=== PATIENT | male | born 1990 | race Hispanic/Latino ===

== ENCOUNTER 2017-06-06 15:05 | Emergency (ER) | payer OTHER ==
[2017-06-06 15:28] VITALS: O2SAT 98
[2017-06-06] MEDS ORDERED: Sodium Chloride 0.9% 1,000 ML IV STA (15:44)
[2017-06-06] MEDS ORDERED: Morphine 4 mg/ml ISec IVP STA ×2 (15:44→18:20)
--- NOTE | 2017-06-06 15:57 | ED PDOC ---
Arrival/HPI - General Chief Complaint: Abdominal Pain Time Seen by Provider: 06/06/17 15:43 Historian: Patient - History of Present Illness Narrative History of Present Illness (Text): 06/06/17 15:53 Carter Miguel is a 26 year old male, whose past medical history includes Small Bowel Obstruction, who presents to the emergency department complaining of abdominal cramping and constipation for 5 days. Patient was sent by Dr. howe for CAT scan. Patient notes when he stretches his sides seize up and he can't move. Patient also notes associated vomiting. Patient denies any fever , chills, chest pain, shortness of breath, nausea, diarrhea, urinary symptoms, back pain, neck pain, headache, dizziness, or any other complaints. Time/Duration: < week (5 days) Symptom Onset: Gradual Symptom Course: Unchanged Activities at Onset: Light Context: Home Past Medical History - Provider Review Nursing Documentation Reviewed: Yes - Travel History If Yes, travel location?: [facility] - Psychiatric Hx Psychophysiologic Disorder: No Hx Substance Use: No Family/Social History - Physician Review Nursing Documentation Reviewed: Yes Family/Social History: Unknown Family HX Smoking Status: Never Smoked Hx Alcohol Use: No Hx Substance Use: No Allergies/Home Meds Allergies/Adverse Reactions: Allergies No Known Allergies Allergy (Verified 06/06/17 15:23) Home Medications: Home Meds Medication Instructions Recorded Confirmed No Known Home Med 06/06/17 06/06/17 Review of Systems - Physician Review All systems were reviewed & negative as marked: Yes - Review of Systems Constitutional: Normal Eyes: Normal ENT: Normal Respiratory: Normal. absent: SOB, Cough Cardiovascular: Normal. absent: Chest Pain Gastrointestinal: Abdominal Pain, Constipation. absent: Diarrhea, Nausea, Vomiting Genitourinary Male: Normal. absent: Dysuria, Frequency, Hematuria, Urinary Output Changes Musculoskeletal: Normal. absent: Back Pain, Neck Pain Skin: Normal. absent: Rash Neurological: Normal. absent: Headache, Dizziness Endocrine: Normal Hemo/Lymphatic: Normal Psychiatric: Normal Physical Exam - Physical Exam Narrative Physical Exam (Text): 06/06/17 15:58 Constitutional: No acute distress. Head: Normocephalic. Atraumatic. Eyes: PERRL. ENT: Moist mucous membranes. Neck: Supple. Cardiovascular: Regular rate. Chest: No tenderness. Respiratory: Clear to auscultation bilaterally. GI: Periumbilical tenderness. Nondistended. Back: No CVA tenderness. Musculoskeletal: No tenderness or swelling of extremities. Skin: No rash. Neurologic: Alert, no focal deficit. Vital Signs Reviewed: Yes Vital Signs Temp Pulse Resp BP Pulse Ox 06/06/17 19:00 88 18 127/79 98 06/06/17 17:05 97 F L 93 H 18 120/75 98 06/06/17 15:27 98.3 F 63 16 127/85 98 Temperature: Afebrile Blood Pressure: Normal Pulse: Regular Respiratory Rate: Normal Appearance: Positive for: Well-Appearing, Non-Toxic, Comfortable Pain Distress: None Mental Status: Positive for: Alert and Oriented X 3 Medical Decision Making ED Course and Treatment: 06/06/17 15:58 Impression: 26 year old male presents to the emergency department complaining of abdominal cramping and constipation. Plan: -- CT Abdomen/Pelvis -- Urinalysis -- Labs -- Lipase -- Morphine -- Zofran -- Sodium Chloride -- Reassess and disposition Progress Notes: 06/06/17 18:50 IMPRESSION: Mild intrahepatic biliary ductal dilatation. No evidence of small-bowel obstruction. Question congenital bowel malrotation. The appendix is not identified. No secondary signs of acute appendicitis appreciated. 06/06/17 19:23 On reevaluation, patient is resting comfortably. Abdomen soft NT/ND on reevaluation. Will follow-up with GI - Lab Interpretations Lab Results: 06/06/17 16:14 06/06/17 16:14 Lab Results 06/06/17 16:14: Sodium 142, Potassium 3.9, Chloride 102, Carbon Dioxide 30, Anion Gap 14, BUN 16, Creatinine 0.9, Est GFR ( Amer) > 60, Est GFR (Non- Af Amer) > 60, Random Glucose 81, Calcium 9.6, Total Bilirubin 0.6, AST 25, ALT 39, Alkaline Phosphatase 55, Total Protein 7.7, Albumin 4.5, Globulin 3.2, Albumin/Globulin Ratio 1.4, Lipase 31 06/06/17 16:14: Urine Color Yellow, Urine Appearance Clear, Urine pH 6.0, Ur Specific [place] 1.025, Urine Protein Negative, Urine Glucose (UA) Negative, Urine Ketones Trace H, Urine Blood Negative, Urine Nitrate Negative, Urine Bilirubin Negative, Urine Urobilinogen 0.2, Ur Leukocyte Esterase Negative 06/06/17 16:14: WBC 5.0, RBC 4.78, Hgb 15.2, Hct 43.5, MCV 91.0, MCH 31.8, MCHC 34.9, RDW 12.7, Plt Count 136, MPV 11.9 H, Gran % 51.5, Lymph % (Auto) 36.8 H, Barnes % (Auto) 9.3 H, Eos % (Auto) 2.2, Baso % (Auto) 0.2, Gran # 2.59, Lymph # ( Auto) 1.9, Barnes # (Auto) 0.5, Eos # (Auto) 0.1, Baso # (Auto) 0.01 - RAD Interpretation Radiology Orders: 06/06/17 15:44 ABD PELVIS PO & IV CONTRAST [CT] Stat - Medication Orders Current Medication Orders: Discontinued Medications Sodium Chloride (Sodium Chloride 0.9%) 1,000 mls @ 999 mls/hr IV .Q1H1M STA Stop: 06/06/17 16:44 Last Admin: 06/06/17 16:18 Dose: 999 mls/hr eMAR Start Stop Document 06/06/17 16:18 EWO (Rec: 06/06/17 16:19 [facility] [id number]) Intravenous Solution Start Date 06/06/17 Start Time 16:19 End Date 06/06/17 End time 17:19 Total Infusion Time 60 Morphine Sulfate (Morphine) 4 mg IVP STAT STA Stop: 06/06/17 15:45 Last Admin: 06/06/17 16:17 Dose: [address] [facility] Pain Assessment Document 06/06/17 16:17 EWO (Rec: 06/06/17 16:18 [facility] [id number]) Pain Reassessment Is this a pain reassessment? No Sleep Is patient sleeping during reassessment? No Presence of Pain Presence of Pain Yes Pain Scale Used Pain Scale Used Numeric Location Pain Location Body Site Abdomen Description Description Intermittent Intensity of Pain at present 7 Pain Behavior Guarding IVP Administration Document 06/06/17 16:17 EWO (Rec: 06/06/17 16:18 [facility] [id number]) Charges for Administration # of IVP Administrations 1 Re-Assess: PACO Pain Assessment Document 06/06/17 17:17 EWO (Rec: 06/06/17 18:20 EWO [id number]) Pain Reassessment Is this a pain reassessment? Yes Sleep Is patient sleeping during reassessment? No Presence of Pain Presence of Pain Yes Pain Scale Used Pain Scale Used Numeric Location Pain Location Body Site Abdomen Description Description Pressure Intensity of Pain at present 3 Morphine Sulfate (Morphine) 4 mg IVP STAT STA Stop: 06/06/17 18:21 Last Admin: 06/06/17 18:29 Dose: 4 mg MAR Pain Assessment Document 06/06/17 18:29 EWO (Rec: 06/06/17 18:29 EWO [id number]) Pain Reassessment Is this a pain reassessment? Yes Sleep Is patient sleeping during reassessment? No Presence of Pain Presence of Pain Yes Pain Scale Used Pain Scale Used Numeric Location Pain Location Body Site Abdomen Description Description Intermittent Intensity of Pain at present 7 Pain Behavior Guarding IVP Administration Document 06/06/17 18:29 EWO (Rec: 06/06/17 18:29 [facility] [id number]) Charges for Administration # of IVP Administrations 2 Ondansetron HCl (Zofran Inj) 4 mg IVP STAT STA Stop: 06/06/17 15:45 Last Admin: 06/06/17 16:18 Dose: 4 mg IVP Administration Document 06/06/17 16:18 EWO (Rec: 06/06/17 16:18 EWO [id number]) Charges for Administration # of IVP Administrations 1 - Scribe Statement The provider has reviewed the documentation as recorded by the Scribstefania He All medical record entries made by the Scribstefania were at my direction and personally dictated by me. I have reviewed the chart and agree that the record accurately reflects my personal performance of the history, physical exam, medical decision making, and the department course for this patient. I have also personally directed, reviewed, and agree with the discharge instructions and disposition. Disposition/Present on Arrival - Present on Arrival Any Indicators Present on Arrival: No History of DVT/PE: No History of Uncontrolled Diabetes: No Urinary Catheter: No History of Decub. Ulcer: No History Surgical Site Infection Following: None - Disposition Have Diagnosis and Disposition been Completed?: Yes Diagnosis: Constipation, Vomiting Disposition: HOME/ ROUTINE Disposition Time: 18:51 Patient Plan: Discharge Condition: GOOD Discharge Instructions (ExitCare): Constipation in Adults, Nausea and Vomiting , Adult Additional Instructions: Follow-up with Dr. Donovan in 2 days. Follow-up with GI. Return to ED if condition worsens. Increase fiber. Referrals: Lio Howe MD [Primary Care Provider] - Follow up with primary Lio Leal MD [Staff Provider] - Follow up with primary Forms: [employer] (Y[place]i)
[2017-06-06] MEDS ORDERED: Iohexol 240 (50 ml) ONE (16:04)
[2017-06-06 16:22] LABS: BASO # 0.01 K/mm3 (0.0-2.0); BASO % 0.2 % (0.0-3.0); EOS # 0.1 (0.0-0.7); EOS % 2.2 % (1.5-5.0); GRAN # 2.59 (1.4-6.5); GRAN % 51.5 % (50.0-68.0); HEMOGLOBIN 15.2 g/dL (14.0-18.0); LYMPH # 1.9 (1.2-3.4); LYMPH % 36.8 % (22.0-35.0); MEAN CORPUSCULAR HEMOGLOBIN 31.8 pg (25.0-35.0); MEAN CORPUSCULAR HGB CONC 34.9 g/dl (31.0-37.0); MEAN PLATELET VOLUME 11.9 fl (7.0-11.0); MONO # 0.5 (0.1-0.6); MONO % 9.3 % (1.0-6.0); RBC 4.78 10^6/uL (3.5-6.1); RED CELL DISTRIBUTION WIDTH 12.7 % (11.5-14.5); URINE BILIRUBIN NEGATIVE (NEGATIVE); URINE BLOOD NEGATIVE (NEGATIVE); URINE GLUCOSE (UA) NEGATIVE (NEGATIVE); URINE LEUKOCYTE ESTERASE NEGATIVE Leu/uL (NEGATIVE); URINE PROTEIN NEGATIVE mg/dL (<30 mg/dL); URINE UROBILINOGEN 0.2 E.U./dL (<1 E.U./dL)
[2017-06-06 16:23] LABS: URINE APPEARANCE CLEAR (CLEAR); URINE COLOR YELLOW (YELLOW)
[2017-06-06 16:35] LABS: ALB/GLOB RATIO 1.4 (1.1-1.8); ALBUMIN 4.5 g/dL (3.0-4.8); ALT/SGPT 39 U/L (7-56); AST/SGOT 25 U/L (17-59); BLOOD UREA NITROGEN 16 mg/dL (7-21); CALCIUM 9.6 mg/dL (8.4-10.5); GFR AFRICAN-AMERICAN > 60; GFR NON-AFRICAN AMERICAN > 60; LIPASE 31 U/L (23-300)
[2017-06-06] MEDS ORDERED: Iohexol 350 MG/100 ML VIAL ONE (16:51)
[2017-06-06 17:15] VITALS: RESP 18; TEMP 97
--- NOTE | 2017-06-06 18:44 | CT ---
PROCEDURE: CT Abdomen and Pelvis with oral and IV contrast. HISTORY: abdominal pain, hx of sbo COMPARISON: None available. TECHNIQUE: Contiguous axial images of the abdomen and pelvis. Oral and IV contrast was administered. Coronal and Sagittal reformats generated and reviewed. Contrast dose: 100 mL Omnipaque 350 Radiation dose: Total exam DLP = 653.78 mGy-cm. This CT exam was performed using one or more of the following dose reduction techniques: Automated exposure control, adjustment of the mA and/or kV according to patient size, and/or use of iterative reconstruction technique. FINDINGS: LOWER THORAX: No visible consolidation, pleural effusion, or pneumothorax. LIVER: Mild intrahepatic biliary dilatation. GALLBLADDER AND BILE DUCTS: Unremarkable. PANCREAS: Unremarkable. SPLEEN: Unremarkable. ADRENALS: Unremarkable. KIDNEYS AND URETERS: The kidneys enhance symmetrically. No hydronephrosis or obstructing renal calculus. BLADDER: The urinary bladder appears unremarkable. REPRODUCTIVE: Unremarkable. APPENDIX: The appendix is not identified. No secondary signs of acute appendicitis. BOWEL: The stomach is nondistended. No evidence of small-bowel obstruction. Please note small bowel is noted within the right abdomen. Large bowel is noted predominantly within the left abdomen. Correlate for history of malrotation. PERITONEUM: No significant free fluid. No definite free air. LYMPH NODES: No bulky lymphadenopathy identified. VASCULATURE: No aortic aneurysm. BONES: No acute osseous abnormality is detected. OTHER FINDINGS: None. IMPRESSION: Mild intrahepatic biliary ductal dilatation. No evidence of small-bowel obstruction. Question congenital bowel malrotation. The appendix is not identified. No secondary signs of acute appendicitis appreciated.
[2017-06-06 19:06] VITALS: BP 127/79; PULSE 88
== END 2017-06-06 19:06 | disposition home or self-care (01) ==
LOC: ED 15:05
DX: K59.00 Constipation, unspecified (principal); R11.10 Vomiting, unspecified
CPT/HCPCS: 74177; 80053; 81003; 83690; 85025; 96361; 96374; 96375; 96376; 99283; J2270; J2405; J7040; Q9966; Q9967